=== PATIENT | female | born 1955 | race African-American/Black ===

== ENCOUNTER 2017-08-17 10:43 | Day surgery (SDC) | payer OTHER ==
[2017-08-15 16:01] VITALS: BMI 26.4
[2017-08-17] MEDS ORDERED: LIDOCAINE HCL 2% (20ML MULTI-DOSE VIAL) NR ONE (12:27)
[2017-08-17] MEDS ORDERED: BUPIVACAINE HCL/PF 0.25% (2.5MG/ML) 10 ML VIAL ONE (12:27)
[2017-08-17] MEDS ORDERED: PROPOFOL 20 ML ONE (12:58)
[2017-08-17] MEDS ORDERED: KETOROLAC TROMETHAMINE 30 MG/1 ML VIAL ONE (12:58)
[2017-08-17] MEDS ORDERED: LIDOCAINE HCL/PF 2% SDV 5ML VIAL ONE (12:58)
[2017-08-17] MEDS ORDERED: MIDAZOLAM HCL 2 MG/2 ML SINGLE DOSE VIAL ONE (12:59)
[2017-08-17] MEDS ORDERED: ceFAZolin SODIUM 1 GM VIAL ONE (13:09)
[2017-08-17] MEDS ORDERED: ceFAZolin SODIUM 1 GM VIAL IVPB ONE (13:11)
[2017-08-17] MEDS ORDERED: BUPIVACAINE HCL/PF 0.25% (2.5MG/ML) 10 ML VIAL IJ ONE (13:20)
[2017-08-17] MEDS ORDERED: LIDOCAINE HCL 2% (50ML VIAL) INF ONE (13:20)
[2017-08-17] MEDS ORDERED: ONDANSETRON 4 MG/2 ML VIAL IVPUSH PRN (14:16)
[2017-08-17] MEDS ORDERED: oxyCODONE HCL 5 MG TABLET PO PRN (14:16)
[2017-08-17] MEDS ORDERED: LACTATED RINGERS SOLUTION 1,000 ML IV SCH (14:30)
[2017-08-17 16:03] VITALS: TEMP 98.1
[2017-08-17 17:58] VITALS: BP 139/86; PULSE 81
--- NOTE | 2017-08-18 09:47 | OP ---
DATE OF OPERATION: 08/17/2017 PREOPERATIVE DIAGNOSIS: Right foot bunion. POSTOPERATIVE DIAGNOSIS: Right foot bunion. PROCEDURE: Right foot bunionectomy. SURGEON: Kristian Norman DPM SUPERVISOR ROVING: Dr. Barby Rangel ESTIMATED BLOOD LOSS: 5 mL. ANESTHESIA: IV MAC with local anesthesia. HEMOSTASIS: Pneumatic ankle tourniquet 250 mmHg. DESCRIPTION OF PROCEDURE: Patient was brought to the operating room table and placed in a supine position. After adequate IV sedation was administered, 1-to-1 mix of 2% lidocaine plain and 0.25% Marcaine plain with a total of 20 mL was injected to the right foot. The right foot was then prepped and draped in the usual aseptic fashion, and upon exsanguination of the right lower extremity, the pneumatic ankle tourniquet was inflated to 250 mmHg. At this time, a dorsal linear incision was made using a No. 15 blade on the dorsal medial aspect of the 1st metatarsophalangeal joint, right foot. Care was taken to protect and identify all neurovascular structures, and all bleeders were cauterized as necessary. The incision was deepened through the subcutaneous tissue using sharp and blunt dissection. Next, a linear capsulotomy was performed at the dorsal medial aspect of the 1st metatarsophalangeal joint. The periosteal and capsular structures were then reflected and freed from the osseous attachment exposing the head of the 1st metatarsal. It was noted that the head was hypertrophied, and there was degeneration of the cartilage of the metatarsal head. Next, an intracapsular lateral release was performed using a 15 blade. The lateral soft tissue attachments of the fibular sesamoid were released. The 15 blade was then placed into the MP, and a stab incision was made through the lateral capsule. The hallux was then rotated upon the blade thus releasing the insertion of the conjoint tendon of the adductor hallucis. At this time, the lateral contracture present on the hallux was noted to be reduced. Next, using the sagittal bone saw, the medial prominence was resected and pulled from the operative field. Attention was then redirected to the medial aspect of the 1st metatarsal head, where using the sagittal saw, a [id number] V-type osteotomy was made at the metaphyseal region of the bone. The apex of the osteotomy pointed distally with the arms pointing proximal plantarly and proximal dorsally. Upon completion of the osteotomy, the capital fragment was distracted and shifted laterally into a rectus position and impacted upon the 1st metatarsal shaft. Next, a 0.62 K-wire was used to stabilize the osteotomy site. Tension was then redirected to the remaining medial bone shelf where the sagittal saw was used to resect the medial bone shelf. Correction of the deformity was assessed at this time, and the metatarsal was in a rectus position with improved 1st MPJ range of motion. The surgical site was then irrigated with saline solution. Next, the capsule was reapproximated using 2-0 Vicryl in simple suture fashion. The subcutaneous tissue was reapproximated using 3-0 Vicryl in simple suture fashion, and the skin was reapproximated using 5-0 nylon in running simple suture fashion. Tourniquet was deflated at this time with a prompt hyperemic response noted to the right foot, and the incision was dressed with Betadine-soaked Adaptic and sterile compressive dressing consisting of 4x4s, Jonas, and KIMBERLY bandage. The patient tolerated the procedure and anesthesia well and left the operating room to the recovery room in good condition with vital signs stable and neurovascular status intact. dictating for RENAE [id number]
--- NOTE | 2017-08-19 17:40 | PATH ---
Surgical Pathology Report Patient Name: JORGE RAMÍREZ [facility]. Rec. #: [id number] /Age/Gender: 1955 (Age: 62) / F Account: [id number] Location: [facility] SURGICAL Taken: 08/17/2017 Received: 08/18/2017 Reported: 08/19/2017 Physicians: Kristian Ross Specimen(s) Received BONE RIGHT FOOT Clinical History Bunion right foot Final Diagnosis BONE RIGHT FOOT, EXCISION: BONE WITH FATTY MARROW AND FIBROCARTILAGINOUS TISSUE SHOWING DEGENERATIVE CHANGE. Electronically Signed Luz Hansen M.D. Gross Description Received in formalin labeled "bone right foot," are 3 portions of bone ranging from 0.6 x 0.5 x 0.1 cm to 1.5 x 1.4 x 0.3 cm. Also received within the same container is a 0.9 x 0.5 x 0.2 cm portion of bell soft tissue. Logistic Manager sections are submitted in one cassette, following decalcification. /08/18/2017 saudi08/18/2017
== END 2017-08-17 16:50 | disposition home or self-care (01) ==
LOC: JASU-SURG 10:43
PROC: 0QBQ0ZZ Excision of Right Toe Phalanx, Open Approach (ICD-10-PCS; principal; 2017-08-17 12:00)
DX: M21.611 Bunion of right foot (principal)
CPT/HCPCS: 73630-TC-RT-FY; 97116-GP